=== PATIENT | male | born 1995 | race Caucasian/White ===

== ENCOUNTER 2018-06-09 15:32 | Emergency (ER) | payer MEDICAID ==
[~2018-06-09] VITALS: Ht 167.6 cm; Wt 65.8 kg
[2018-06-09 15:35] VITALS: BP 112/64
--- NOTE | 2018-06-09 15:35 | NUR ---
PT [facility]IBRA TO ER BED 12. PER REPORT, STAFF IS CONCERNED ABOUT PT POSSIBLY ON METH. 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 ADMITS TO METH AND ALCOHOL USE. DENIES SI/HI. PLACED ON MONITOR. AWAITINGMD EVAL.
--- NOTE | 2018-06-09 15:40 | NUR ---
DR AC AT BEDSIDE FOR EVAL.
--- NOTE | 2018-06-09 15:57 | NUR ---
QI SPECIALIST AT BEDSIDE FOR BLOOD DRAW.
[2018-06-09 16:02] LABS: BASOPHILS # (AUTO) 0.1 /CMM (0.0-0.2); BASOPHILS % (AUTO) 0.6 % (0.0-2.0); EOSINOPHILS % (AUTO) 1.5 % (0.0-6.0); HEMATOCRIT 45 % (39-51); HEMOGLOBIN 15.1 g/dL (13.5-17.5); LYMPHOCYTES # (AUTO) 5.2 /CMM (0.8-4.8); LYMPHOCYTES % (AUTO) 58.5 % (20.0-44.0); MEAN CORPUSCULAR HEMOGLOBIN 28 PG (26.0-33.0); MEAN CORPUSCULAR HGB CONC 33 g/dl (31.0-36.0); MEAN CORPUSCULAR VOLUME 84 fL (80-96); MONOCYTES # (AUTO) 0.8 /CMM (0.1-1.30); MONOCYTES % (AUTO) 9.5 % (2.0-12.0); NEUTROPHILS # (AUTO) 2.6 /CMM (1.8-8.9); NEUTROPHILS % (AUTO) 29.9 % (43.0-81.0); PLATELET COUNT (AUTO) 92 /CMM (150-450); RDW COEFFICIENT OF VARIATION 14.5 (11.5-15.0); RED BLOOD CELL COUNT(AUTO) 5.41 MIL/uL (4.5-6.0); WHITE BLOOD COUNT (AUTO) 8.8 K/uL (4.3-11.0)
[2018-06-09 16:12] LABS: CALCIUM, SERUM 8.6 mg/dL (8.5-10.1); POTASSIUM 3.4 mmol/L (3.5-5.1)
[2018-06-09 16:50] LABS: LYMPHOCYTES % (MANUAL) 54 % (16-48); MONOCYTES % (MANUAL) 18 % (0-11.0); NEUTROPHILS % (MANUAL) 25 (42-76); REACTIVE LYMPHOCYTES 3 % (0-0)
--- NOTE | 2018-06-09 16:52 | NUR ---
PT ELOPED FROM ED.
== END 2018-06-09 16:53 | disposition left against medical advice (07) ==
LOC: ER 15:35
DX: F10.129 Alcohol abuse with intoxication, unspecified (principal); F15.129 Other stimulant abuse with intoxication, unspecified; F19.10 Other psychoactive substance abuse, uncomplicated; R45.851 Suicidal ideations; Y90.8 Blood alcohol level of 240 mg/100 ml or more
CPT/HCPCS: 36415; 80048; 80305; 85025; 99284; A4606; G0480; Z7610